=== PATIENT | female | born 1960 | race Caucasian/White ===

== ENCOUNTER 2019-09-01 07:39 | Emergency (ER) | payer SELFPAY ==
[2019-09-01] MEDS ORDERED: ONDANSETRON INJ 4 MG/2 ML VIAL IV ONE (07:55)
[2019-09-01] MEDS ORDERED: MORPHINE SULFATE INJ 10 MG/ML VIAL IV ONE (07:55)
--- NOTE | 2019-09-01 07:59 | ED.PDOC ---
History of Present Illness - General Chief Complaint: Back Pain or Injury Time Seen by Provider: 09/01/19 07:47 Additional Information: Patient is a 59-year-old female who presents to the ED with chief complaint of right flank pain. Patient indicates the pain began 2 days ago and has been constant. She describes it as a sharp pain, 8 out of 10 in intensity. Positive nausea, negative vomiting. Negative chest pain, shortness of breath, cough, abdominal pain, diarrhea. Patient also denies hematuria and dysuria. Patient indicates she does not have a history of kidney stones. - History of Present Illness Allergies/Adverse Reactions: Allergies NO KNOWN ALLERGY Allergy (Verified 09/01/19 07:56) Home Medications: Ambulatory Orders Acetaminophen W/ Codeine [Tylenol W/ CODEINE #3] 1 ea PO Q6H PRN #20 09/01/19 Cyclobenzaprine HCl [Flexeril] 10 mg PO Q8H PRN #20 tab 09/01/19 Ibuprofen [Motrin] 600 mg PO Q6H PRN #20 tab 09/01/19 Lisinopril 10 mg PO DAILY #30 tab 09/01/19 Promethazine Tab [Phenergan Tablet] 25 mg PO Q6H PRN #12 tab 09/01/19 Review of Systems - Review of Systems Constitutional: Denies: chills, fever EENTM: States: no symptoms reported Respiratory: States: no symptoms reported. Denies: cough, short of breath Cardiology: States: no symptoms reported. Denies: chest pain Gastrointestinal/Abdominal: States: nausea. Denies: abdominal pain, diarrhea, vomiting Genitourinary: States: no symptoms reported Musculoskeletal: Denies: muscle pain, muscle stiffness Skin: States: no symptoms reported. Denies: rash Neurological: States: no symptoms reported All other Systems: Reviewed and Negative Past Medical History (General) - Patient Medical History Hx Seizures: No Hx Stroke: No Hx Dementia: No Hx Asthma: No Hx of COPD: No Hx Cardiac Disorders: No Hx Congestive Heart Failure: No Hx Pacemaker: No Hx Hypertension: Yes Hx Thyroid Disease: No Hx Diabetes: No Hx Gastroesophageal Reflux: No Hx Renal Disease: No Hx Cancer: No Hx of HIV: No Hx Hepatitis C: No Hx MRSA: No - Vaccination History Hx Tetanus, Diphtheria Vaccination: No Hx Influenza Vaccination: No Hx Pneumococcal Vaccination: No - Social History Hx Tobacco Use: No Hx Chewing Tobacco Use: No Hx Alcohol Use: No Hx Substance Use: No Hx Substance Use Treatment: No Hx Depression: No Hx Physical Abuse: No Hx Emotional Abuse: No Hx Suspected Abuse: No - Female History Patient : No Family Medical History - Family History Father Living Status: Mother Living Status: Still Living Hx Family Hypertension: Yes Hx Family Diabetes: Yes Physical Exam - Physical Exam General Appearance: Comfortable, No apparent distress, Well Developed, Well Nourished Eyes, Ears, Nose, Throat Exam: PERRL/EOMI Neck Exam: normal inspection Cardiovascular/Respiratory: regular rate, rhythm, no M/R/G, normal peripheral pulses, no JVD, normal breath sounds, no respiratory distress Gastrointestinal/Abdominal: normal bowel sounds, non tender, soft, no organomegaly, no pulsatile mass Back Exam: normal inspection, CVA tenderness (R) - Mild Extremity Exam: normal range of motion, non-tender, no pedal edema 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 Her labs are unremarkable and she has no evidence of UTI or hematuria. Her CT abdomen and pelvis, however, shows a mass associated with patient's right kidney. I discussed with patient that I do not believe that this is the source of her discomfort but that it requires further work-up to exclude malignancy. We discussed that I will discharge patient with analgesics and I will give her a referral for follow-up with Dr. Maldonado for further evaluation. I have given patient a copy of her CT report outlining the findings and she will present this to her follow-up physician for consideration of ordering MRI. Vital signs stable, patient is NAD and looks clinically well and I believe is safe for discharge with outpatient follow-up. Follow-up instructions, discharge instructions and return to ED precautions discussed with patient. Patient voices understanding and willingness to comply with instructions. All laboratory and radiographic results have been discussed with the patient, and all questions answered. Patient is happy with plan. - Results/Orders Results/Orders: Laboratory Results - last 24 hr 09/01/19 09/01/19 09/01/19 08:07 08:07 08:12 WBC 10.6 RBC 4.76 Hgb 14.9 Hct 43.8 MCV 92.0 MCH 31.4 H MCHC 34.1 RDW 13.0 Plt Count 345 MPV 7.7 Absolute Neuts (auto) 6.40 Absolute Lymphs (auto) 3.40 Absolute Monos (auto) 0.50 Absolute Eos (auto) 0.10 Absolute Basos (auto) 0.00 Neutrophils % 61.0 Lymphocytes % 32.4 Monocytes % 5.0 Eosinophils % 1.3 Basophils % 0.3 Sodium 138 Potassium 3.5 L Chloride 102 Carbon Dioxide 26 Anion Gap 13.5 BUN 10 Creatinine 0.55 L BUN/Creatinine Ratio 18.2 Random Glucose 128 H Serum Osmolality 276.4 Calcium 8.7 Urine Color Yellow Urine Appearance Clear Urine pH 7.0 Ur Specific Labadie 1.025 Urine Protein 30 Urine Glucose (UA) Negative Urine Ketones 40 H Urine Blood Negative Urine Nitrite Negative Urine Bilirubin Negative Urine Urobilinogen 0.2 Ur Leukocyte Esterase Negative Urine RBC 0 Urine WBC 0 Ur Epithelial Cells 0 Urine Bacteria 0 Departure - Departure Clinical Impression: Flank pain, acute, Abnormal CT of the abdomen, Essential hypertension Time of Disposition: 09:36 Disposition: Discharge to Home or Self Care Condition: Good Departure Forms: ED Discharge - Pt. Copy, Patient Portal Self Enrollment Instructions: DI for Low Back Pain, Flank Pain (DC) Referrals: SANDRA MALDONADO MD [Active Staff] - 1-5 Days (For reevaluation and for consideration of MR abdomen and pelvis to evaluate right renal mass noted on CT imaging today.) Prescriptions: Cyclobenzaprine HCl [Flexeril] 10 mg PO Q8H PRN #20 tab PRN Reason: Pain Lisinopril 10 mg PO DAILY #30 tab Ibuprofen [Motrin] 600 mg PO Q6H PRN #20 tab PRN Reason: Pain Promethazine Tab [Phenergan Tablet] 25 mg PO Q6H PRN #12 tab PRN Reason: Vomiting Acetaminophen W/ Codeine [Tylenol W/ CODEINE #3] 1 ea PO Q6H PRN #20 PRN Reason: Pain Home Medications: Ambulatory Orders Acetaminophen W/ Codeine [Tylenol W/ CODEINE #3] 1 ea PO Q6H PRN #20 09/01/19 Cyclobenzaprine HCl [Flexeril] 10 mg PO Q8H PRN #20 tab 09/01/19 Ibuprofen [Motrin] 600 mg PO Q6H PRN #20 tab 09/01/19 Lisinopril 10 mg PO DAILY #30 tab 09/01/19 Promethazine Tab [Phenergan Tablet] 25 mg PO Q6H PRN #12 tab 09/01/19
--- NOTE | 2019-09-01 09:02 | CT ---
EXAM: Abdoment/Pelvis w/o Contrast CLINICAL INDICATION: Flank pain COMPARISON: There is no previous study for comparison. TECHNIQUE: The CT scan was done using contiguous axial 2.5 mm noncontrast sections through the abdomen and pelvis. This exam was performed according to our departmental dose-optimization program, which includes automated exposure control, adjustment of the mA and/or kV according to patient size and/or use of iterative reconstruction technique. FINDINGS: The visualized portions of the lung bases are clear. The liver, gallbladder, adrenal glands, spleen, pancreas, and kidneys have a normal noncontrast CT appearance. The aorta is normal in caliber. There is no renal or ureteral stone or hydronephrosis on either side. Diverticulosis of the colon is identified. No findings of acute diverticulitis are seen. There are no dilated loops of small bowel. There is no free air, free fluid, or abscess. There is an ovoid mass within fat inferior to the right kidney, series 2, image 98 measuring 2.1 x 2.0 cm. IMPRESSION: 1. No evidence of an acute intra-abdominal process. 2. Diverticulosis. 3. Mass noted within perinephric fat inferior to the right kidney, tumor or metastasis cannot be excluded. Correlation with follow-up PET/CT scan is recommended. Electronically signed by: Stephon Pace MD 09/01/2019 9:00 AM CDT
[2019-09-01 10:06] VITALS: O2SAT 92
[2019-09-01] MEDS ORDERED: METOCLOPRAMIDE HCL INJ 10 MG/2 ML VIAL IV ONE (10:11)
[2019-09-01] MEDS ORDERED: KETOROLAC TROMETHAMINE INJ 30 MG/ML VIAL IV ONE (10:17)
[2019-09-01 10:38] VITALS: BP 167/102; TEMP 97.5
== END 2019-09-01 10:41 | disposition home or self-care (01) ==
LOC: ER 07:39
DX: R10.9 Unspecified abdominal pain (principal); R93.5 Abnormal findings on diagnostic imaging of other abdominal regions, including retroperitoneum; I10 Essential (primary) hypertension; R11.0 Nausea; Z79.899 Other long term (current) drug therapy
CPT/HCPCS: 36415; 74176; 80048; 81001; 85025; J1885; J2270; J2405; J2765